=== PATIENT | male | born 1950 | race Caucasian/White ===

== ENCOUNTER 2021-02-24 10:44 | Inpatient (IN) | payer MEDICARE ==
[~2021-02-24] VITALS: Ht 175.3 cm; Wt 70.8 kg
[2021-03-10] VITALS (11 sets, daily range): BP systolic 127–169; BP diastolic 71–91; PULSE 69–106; TEMP 97.5–99.3
[2021-03-10] MEDS ORDERED: ASPIRIN 81M81 MG/TA2 PO (05:30)
[2021-03-10] MEDS ORDERED: NORVASC 10MG10 MG PO (05:31)
[2021-03-10] MEDS ORDERED: LIPITOR 80MG80 MG PO (05:31)
[2021-03-10] MEDS ORDERED: PLAVIX 75MG TAB75 MG PO (05:59)
[2021-03-10 06:06] LABS: BASO % 0.8 % (0.0-2.0); EOS # 0.2 (0.0-0.7); EOS % 3.5 % (0-4.0); GRAN # 3.2 (1.4-6.5); GRAN % 65.9 % (42.2-75.2); HEMATOCRIT 40.9 % (42.0-52.0); HEMOGLOBIN 14.4 g/dl (13.5-18.0); LYMPH # 0.9 (1.2-3.4); LYMPH % 18.1 % (20.0-51.0); MEAN CELL VOLUME 95 fl (80.0-100.0); MEAN CORPUSCULAR HEMOGLOBIN 34 pg (27.0-31.0); MEAN CORPUSCULAR HGB CONC 35 g/dl (33.0-37.0); MEAN PLATELET VOLUME 9.9 fl (7.4-10.4); MONO # 0.5 (0.1-0.6); MONO % 10.7 % (1.7-9.3); PLATELET COUNT 142 K/mm3 (130-400); REDCELL DISTRIBUTION WIDTH-CV 14.1 % (11.5-14.5)
--- NOTE | 2021-03-10 06:06 | NUR ---
The patient ambulated back to [facility] independently using a steady gait and appeared to tolerate the activity well. Vital signs obtained. Consent signed. 18G IV started in left hand with one stick, LR Infusing without difficulty. Heart Reg. Lungs have expiratory wheezes throughout. Bowel sounds audible. Call light is within reach. brought back to be at his bedside. Will continue to monitor the patient.
[2021-03-10 06:16] LABS: ALBUMIN 4.3 gm/dL (3.5-5.0); BILIRUBIN,TOTAL 0.9 mg/dL (0.0-1.0); CALCIUM 9.1 mg/dL (8.4-10.2); CREATININE, serum 0.66 (0.66-1.25); POTASSIUM 4.1 mmol/L (3.4-5.0); TOTAL PROTEIN 8.2 gm/dL (6.4-8.2)
--- NOTE | 2021-03-10 07:15 | NUR ---
The patient was taken to the operating room via cart. The patient's belongings were taken over to the recovery room and will be transferred up with the patient to the 3rd floor post operatively. The patient's is going to the cafeteria to get breakfast and then will return to the waiting room.
--- NOTE | 2021-03-10 11:50 | NUR ---
Patient to room 331 post op. Report from Cristina. His at bedside. Patient drowsy, but does report pain. I educated patient and his about ERAS protocol. was giving patient a coke upon arrival to the room. I discussed importace of no carbination. Patient given coffee, he wanted a straw, I discussed no straws. Patient also requesting a cigerette. Tubbs to DD pale yellow urine. Abdomen soft & drg clean dry intact. Will closey monitor.
--- NOTE | 2021-03-10 12:28 | NUR ---
Patient provided with clear liquids. His assisting. [facility] protocol reviewed & tylenol provided.
--- NOTE | 2021-03-10 16:22 | NUR ---
Patient napped well this afternoon. Vitals stable on room air. Tubbs to DD with great urine output. Per eras patient up out of bed but only able to ambulate around bed. He was wobbly on his feet, but denies dizzyness. Abdomen soft, no reports of flatus yet. His supportive at bedside. Clears provided, she is assisting patient
--- NOTE | 2021-03-10 18:49 | NUR ---
Patient up to the chair breifly. Walked him to the doorway and back. He continues to be wobbly on his feet. Gaitbelt used. He denies using walker or cane at home. He tolerated clear liquids for dinner, denies nausea. Roxicodone relieved pain. Tyelnol for eras. Scds ble. Tubbs to DD. Abdomen seems slightly distended, but reports passing flatus & belching. Midline incision with richie at a very small amount of blood noted to gauze dressing. He supportive at bedside. Bedside Report to amilcar Regalado.
--- NOTE | 2021-03-10 21:47 | NUR ---
Patient alert and oriented. in the room. Midline incision site covered with dry gauze and tegaderm. Dressing changed by day shift nurse around 18:50 pm. Small amount of blood noted in old dressing. Midline incision site has no s/s of infection. Tubbs patent and draining clear yellow urine. Scheduled meds given per AUG. Patient denies any pain, SOB, N/V or diarrhea. Patient reports having some acid refulx. Anti-acid med given per AUG. Call light in reach. Will continue to monitor.
[2021-03-11 00:28] VITALS: BP 144/77; PULSE 72; TEMP 98
[2021-03-11 03:30] VITALS: BP 140/69; PULSE 66; TEMP 97.7
[2021-03-11 07:48] LABS: HEMOGLOBIN 12.5 g/dl (13.5-18.0)
[2021-03-11 07:50] LABS: HEMATOCRIT 36.9 % (42.0-52.0)
--- NOTE | 2021-03-11 08:00 | NUR ---
Patient in bed resting. Alert and oriented x 3. Assessment complete. Denies pain at this time. Lap sites x 5 with bandaids are CDI. Midline incision with gauze and tegaderm dressing also CDI. Fluids infusing per orders. Tubbs to DD with clear yellow urine present. Patient denies needs at this time. Spouse at bedside.
[2021-03-11 08:07] LABS: CALCIUM 8.7 mg/dL (8.4-10.2); CREATININE, serum 0.85 (0.66-1.25); POTASSIUM 4.4 mmol/L (3.4-5.0)
[2021-03-11 08:36] VITALS: BP 166/89; PULSE 72; TEMP 98
--- NOTE | 2021-03-11 10:00 | NUR ---
Tubbs catheter discontinued per orders. Patient tolerated procedure well, encouraged to increase fluid intake.
[2021-03-11 12:00] VITALS: BP 161/67; PULSE 91; TEMP 97.5
--- NOTE | 2021-03-11 12:50 | NUR ---
Discharge education provided to patient. Educated on when to call providers and scheduling follow up appointments. Educated on holding plavix until saturday per Dr. Molina. Patient voiding well after fall removal. Denies needs at this time. INT discontinued; catheter tip intact. Patient out with surgical staff and family.
== END 2021-03-11 12:50 | disposition home or self-care (01) | DRG 658 ==
LOC: INPTSU 03-10 04:51 → SURG 03-10 07:30
PROVIDERS: ADMIT Urology
PROC: 8E0W4CZ Robotic Assisted Procedure of Trunk Region, Percutaneous Endoscopic Approach (ICD-10-PCS; 2021-03-10)
PROC: 0TT14ZZ Resection of Left Kidney, Percutaneous Endoscopic Approach (ICD-10-PCS; principal; 2021-03-10 07:30)
DX: C64.2 Malignant neoplasm of left kidney, except renal pelvis (principal); N26.1 Atrophy of kidney (terminal); F10.10 Alcohol abuse, uncomplicated; I65.29 Occlusion and stenosis of unspecified carotid artery; F32.9 Major depressive disorder, single episode, unspecified; E78.5 Hyperlipidemia, unspecified; I10 Essential (primary) hypertension; J44.9 Chronic obstructive pulmonary disease, unspecified; Z79.82 Long term (current) use of aspirin
CPT/HCPCS: A4314; J0690; J1100; J1170; J1940; J2250; J2370; J2405; J2704; J3010; J7120